=== PATIENT | male | born 1995 | race Two or more races ===

== ENCOUNTER 2018-05-21 04:47 | Emergency (ER) | payer SELFPAY ==
[2018-05-21 05:09] VITALS: RESP 18; TEMP 97.6
--- NOTE | 2018-05-21 06:11 | ED PDOC ---
HPI: Psych/Substance Abuse Time Seen by Provider: 05/21/18 05:02 Chief Complaint (Nursing): Alcohol Ingestion Chief Complaint (Provider): Alcohol Ingestion History Per: Patient, EMS History/Exam Limitations: intoxication Onset/Duration Of Symptoms: Hrs Current Symptoms Are (Timing): Still Present Modifying Factor(s): Alcohol Additional Complaint(s): 23 y/o male with an unknown PMHx brought in by EMS for alcohol intoxication. Patient states he was at a bar where he drank three beers. Otherwise, patient denies drugs and injuries. History limited by patient's intoxicated state. PMD: no provider Past Medical History Reviewed: Historical Data, Nursing Documentation, Vital Signs Vital Signs: Last Vital Signs Temp 97.6 F 05/21/18 04:52 Pulse 56 L 05/21/18 04:52 Resp 18 05/21/18 04:52 BP 138/96 H 05/21/18 04:52 Pulse Ox 97 05/21/18 04:52 - Medical History PMH: No Chronic Diseases - Surgical History Surgical History: No Surg Hx - Family History Family History: States: Unknown Family Hx - Allergies Allergies/Adverse Reactions: Allergies Allergy/AdvReac Type Severity Reaction Status Date / Time No Known Allergies Allergy Verified 05/21/18 05:05 Review of Systems ROS Statement: Except As Marked, All Systems Reviewed And Found Negative Psych: Positive for: Other (alcohol intoxication) Physical Exam - Reviewed Nursing Documentation Reviewed: Yes Vital Signs Reviewed: Yes - Physical Exam Appears: Positive for: No Acute Distress (intoxicated appearing) Head Exam: Positive for: ATRAUMATIC, NORMOCEPHALIC Skin: Positive for: Normal Color, Warm, Dry Eye Exam: Positive for: Normal appearance, EOMI, PERRL Neck: Positive for: Normal, Painless ROM Cardiovascular/Chest: Positive for: Regular Rate, Rhythm. Negative for: Murmur Respiratory: Positive for: Normal Breath Sounds. Negative for: Respiratory Distress Gastrointestinal/Abdominal: Positive for: Normal Exam, Soft. Negative for: Tenderness Extremity: Positive for: Normal ROM. Negative for: Deformity Neurologic/Psych: Positive for: Alert, Oriented, Other (slurred speech). Negative for: Motor/Sensory Deficits - ECG O2 Sat by Pulse Oximetry: 97 (RA) Pulse Ox Interpretation: Normal Medical Decision Making Medical Decision Making: Time: 523 A/P: Alcohol intoxication without signs of trauma -- Will monitor for sobriety -- Alcohol Serum -- Glucose, Blood, POC Time: 0700 -- Patient endorsed to Dr. Ferraro, pending sobriety. Scribe Attestation: Documented by Anjel Lindsay, acting as a scribe for Husam Cowan MD. Provider Scribe Attestation: All medical record entries made by the Scribe were at my direction and personally dictated by me. I have reviewed the chart and agree that the record accurately reflects my personal performance of the history, physical exam, medical decision making, and the department course for this patient. I have also personally directed, reviewed, and agree with the discharge instructions and disposition. Disposition - Clinical Impression Clinical Impression: Alcohol abuse with intoxication - Patient ED Disposition Is Patient to be Admitted: Transfer of Care - Disposition Disposition: Transfer of Care Disposition Time: 07:00 Condition: IMPROVED Additional Instructions: Increase hydration for the next 48 hours. Do not drink alcohol or do drugs. Follow up with primary medical doctor. Instructions: Alcohol Use - When Is Drinking a Problem?, Effects of Alcohol on Your Health Forms: [facility] (Syrian) Print Language: FINNISH Patient Signed Over To: Julia Ferraro Handoff Comments: pending sobriety
--- NOTE | 2018-05-21 07:21 | ED PDOC ---
- ECG O2 Sat by Pulse Oximetry: 97 (RA) Medical Decision Making Medical Decision Making: Time: 0700 Patient endorsed to provider from Husam Cowan MD. Pending sobriety and safe discharge. Time: 1130 Clinically sober. Patient will get Uber home. Patient denies pain and discomfort. Patient declines paperwork for outpatient followup. Scribe Attestation: Documented by Óscar Ly, acting as a scribe for Julia Ferraro MD. Provider Scribe Attestation: All medical record entries made by the Scribe were at my direction and personally dictated by me. I have reviewed the chart and agree that the record accurately reflects my personal performance of the history, physical exam, medical decision making, and the department course for this patient. I have also personally directed, reviewed, and agree with the discharge instructions and disposition. Disposition - Clinical Impression Clinical Impression: Alcohol abuse with intoxication - POA Present On Arrival: None - Disposition Disposition: Routine/Home Disposition Time: 12:00 Condition: STABLE Additional Instructions: Increase hydration for the next 48 hours. Do not drink alcohol or do drugs. Follow up with primary medical doctor. Instructions: Alcohol Use - When Is Drinking a Problem?, Effects of Alcohol on Your Health Forms: [employer] (Ethiopian) Print Language: ISRAELI
[2018-05-21 11:49] VITALS: BP 130/81; PULSE 64
[2018-05-21 20:50] VITALS: O2SAT 97
== END 2018-05-21 11:59 | disposition home or self-care (01) ==
LOC: H.ER 04:47 → EDBD 04:47 → H.ER 11:59
DX: F10.129 Alcohol abuse with intoxication, unspecified (principal)
CPT/HCPCS: 99284; G0480